=== PATIENT | male | born 1985 | race Caucasian/White ===

== ENCOUNTER → 2016-11-28 | Outpatient (CLI) | payer OTHER ==
[~2016-11-28] MED LIST: CLC100 PO; CMD10 PO; CMD75 PO; IBUP-1428 PO; LVNISUNK; PRCUNK PO; TRAM-10 PO
[2016-11-28 12:03] LABS: BASO % 0.3 %; BASO ABS # 0.02 K/uL (0-0.2); COMPLETE YES; EOS % 4.2 %; HEMATOCRIT 48.5 % (42-52); IG% 0.1 %; LYMPH ABS # 2.55 K/uL (1.2-3.4); MEAN CORPUSCULAR HEMOGLOBIN 31.5 pg (25-34); MEAN CORPUSCULAR HGB CONC 34.2 g/dl (32-36); MEAN PLATELET VOLUME 11.6 fL (7.4-10.4); MONO % 7.1 %; NEUT % 51.3 %; PLATELET COUNT 256 K/uL (130-400); RED BLOOD COUNT 5.27 M/uL (4.7-6.1); WHITE BLOOD COUNT 6.89 K/uL (4.8-10.8)
[2016-11-28 12:21] LABS: ALT/SGPT 38 U/L (12-78); AST/SGOT 18 U/L (15-37); BLOOD UREA NITROGEN 11 mg/dl (7-18); BUN/CREATININE RATIO 11.5 (10-20); CALCIUM 9.1 mg/dl (8.5-10.1); CARBON DIOXIDE 31 mmol/L (21-32); CHLORIDE 105 mmol/L (98-107); CREATININE 0.93 mg/dl (0.60-1.40); GLUCOSE 81 mg/dl (70-99); MAGNESIUM 2.5 mg/dl (1.8-2.4); POTASSIUM 4.1 mmol/L (3.5-5.1); SODIUM 142 mmol/L (136-145)
[2016-11-28 12:30] LABS: ALB/GLOB RATIO 1.4 (0.9-2); ALKALINE PHOSPHATASE 68 U/L (45-117); CHOLESTEROL 158 mg/dl (0-200); CHOLESTEROL/HDL RATIO 2.2; HDL CHOLESTEROL 73 mg/dl; LDL CHOLESTEROL CALCULATED 74 mg/dl; TRIGLYCERIDES 53 mg/dl (0-150); VERY LOW DENSITY LIPOPROT CALC 11 mg/dl
== END | disposition home or self-care (01) ==
LOC: C.LABBFT 09:47
PROVIDERS: ATTEND Nurse Practitioner Family
DX: R42 Dizziness and giddiness (principal); R63.4 Abnormal weight loss; Z13.220 Encounter for screening for lipoid disorders

== ENCOUNTER → 2016-12-16 | Outpatient (CLI) | payer OTHER ==
--- NOTE | 2016-12-16 11:33 | DIAGNOSTIC IMAGING REPORT ---
L-SPINE MIN 4 VIEWS ROUTINE CLINICAL HISTORY: Lumbago. Lumbar radicular pain. COMPARISON: None FINDINGS: Surgical material projecting of the right lower quadrant is noted, possibly from hernia repair. Alignment of lumbar spine is anatomic. There is no fracture or suspicious lesion. There is minimal disc space narrowing and osteophytosis at L5-S1. IMPRESSION: 1. No lumbar spine fracture or subluxation. 2. Mild degenerative disc disease at L5-S1. Electronically signed by: Benigno Dhillon M.D. 12/16/2016 11:31 AM Dictated Date/Time: 12/16/2016 11:16 AM
== END | disposition home or self-care (01) ==
LOC: C.RADBC 10:44
PROVIDERS: ATTEND Physician Assistant
DX: M54.16 Radiculopathy, lumbar region (principal)

== ENCOUNTER → 2016-12-29 | Outpatient (CLI) | payer OTHER ==
[~2016-12-29] MED LIST changes: -CLC100 PO; -CMD10 PO; -CMD75 PO; +GADAVIST IV PRN; -LVNISUNK; -PRCUNK PO; -TRAM-10 PO
--- NOTE | 2016-12-29 10:16 | DIAGNOSTIC IMAGING REPORT ---
LUMBAR SPINE MRI WITH AND WITHOUT CONTRAST HISTORY: LUMBAGO, LUMBAR RADICULOPATHY, URINARY INCONTINENC TECHNIQUE: Multiplanar multisequence MRI of the lumbar spine was performed both before and after the intravenous administration of contrast. COMPARISON: Lumbar spine 12/16/2016. FINDINGS: For the purpose of the report the L5-S1 disc space will be located on axial image 23 of 25. Alignment and curvature intact. No fracture or subluxation. Mild disc space narrowing at L5-S1. Mild disc desiccation at L4-L5. The conus terminates at L2. No abnormal enhancement. The visualized retroperitoneal soft tissues are unremarkable. Primarily red marrow conversion within the lumbar spine vertebral bodies likely age-related. No suspicious lesions identified. L1-L2: No significant central canal or neural foraminal narrowing. L2-L3: No significant central canal or neural foraminal narrowing. L3-L4: No significant central canal or neural foraminal narrowing. L4-L5: No significant central canal or neural foraminal narrowing. L5-S1: Small broad-based posterior disc bulge without significant central canal or neural foraminal narrowing. IMPRESSION: 1. Mild degenerative disc disease at L5-S1. However, no significant central canal or neural foraminal narrowing. 2. Primarily red marrow conversion within the lumbar spine vertebral bodies likely age-related. No suspicious lesions identified. Comparison to a CBC can be performed to exclude the less likely possibility of an underlying anemia. Electronically signed by: Cody Foster M.D. 12/29/2016 10:13 AM Dictated Date/Time: 12/29/2016 10:07 AM
== END | disposition home or self-care (01) ==
LOC: C.MRIBC 08:46
PROVIDERS: ATTEND Physician Assistant
DX: M51.17 Intervertebral disc disorders with radiculopathy, lumbosacral region (principal)

== ENCOUNTER → 2017-10-22 | Outpatient (CLI) | payer BC, OTHER ==
[~2017-10-22] MED LIST changes: -GADAVIST IV PRN
== END | disposition home or self-care (01) ==
LOC: C.PATHSPEC 18:53
PROVIDERS: ATTEND Urology
DX: Z30.2 Encounter for sterilization (principal)